=== PATIENT | male | born 1965 | race Caucasian/White ===

== ENCOUNTER 2025-03-20 08:33 | Outpatient (CLI) | payer BC ==
[2025-03-20 09:11] LABS: Estimated GFR - POC 69.0
== END 2025-03-20 08:34 | disposition home or self-care (01) ==
LOC: SCSMRI 08:33
PROVIDERS: ATTEND Urology
DX: C61 Malignant neoplasm of prostate (principal)
CPT/HCPCS: 36415; 72197; 82565